=== PATIENT | female | born 1965 | race Caucasian/White ===

== ENCOUNTER → 2019-02-25 13:45 | Outpatient (BNVA) | payer MEDICAID, SELFPAY | PROVIDERS: Family Provider Nurse Practitioner Family; PCP Internal Medicine; Visit Provider Orthopaedic Surgery | DX: M25.832 Other specified joint disorders, left wrist (principal) | CPT/HCPCS: 73110 ==

== ENCOUNTER 2019-03-25 15:46 | Outpatient (CLI) | payer MEDICAID, SELFPAY ==
--- NOTE | 2019-03-25 15:15 | MR_ITS ---
WS: [id number] MRI LUMBAR SPINE NONCONTRAST TECHNIQUE: Sagittal T1, T2 and STIR imaging. Axial T1 and T2 imaging. CLINICAL INFORMATION: Low back pain COMPARISON: None. FINDINGS: Mild lumbar curve. No acute compression. No high-grade central canal stenosis. L1-L2: Normal. L2-L3: No significant disc bulging. Mild facet arthropathy. Slight narrowing of the right subarticula r recess. Spinal canal and foramen are patent. L3-L4: Minimal annular bulging. Mild facet arthropathy. Spinal canal and foramen are patent. L4-L5: Minimal anterolisthesis. Mild annular bulging. Moderate facet arthropathy. Slight effacement o f ventral thecal sac. Small right foraminal protrusion with mild right and no significant left forami nal narrowing. L5-S1: No significant disc bulging. Moderate facet arthropathy. Spinal canal and foramen are patent. Small amount of edema in the adjacent L4 and L5 pedicles consistent with stress reaction and/or degen erative change. Tarlov cysts in the sacrum. Prior postoperative changes anterior cervical fusion C5-6. Small left renal cyst. Normal caliber abdo long aorta. MR/MR lumbar spine wo con* [id number] IMPRESSION: 1. Mild lumbar curve. No acute compression. 2. Slight anterolisthesis L4 on L5. Small right proximal foraminal protrusion with mild right L4-5 foraminal narrowing. Slight annular bulging L2-3 with slig ht narrowing of the right subarticular recess. 3. Moderate facet arthropathy L4-L5 and L5-S1 with a small amount of edema in the adjacent pedicles consistent with stress reaction and/or degenerative henry e. 4. Prior anterior cervical fusion C5-6.
== END 2019-03-25 15:47 | disposition home or self-care (01) ==
PROVIDERS: Family Provider Nurse Practitioner Family; PCP Licensed Practical Nurse; Visit Provider Licensed Practical Nurse
DX: Z98.1 Arthrodesis status (principal); M47.817 Spondylosis without myelopathy or radiculopathy, lumbosacral region
CPT/HCPCS: 72148

== ENCOUNTER → 2019-04-02 09:26 | Outpatient (BNVA) | payer MEDICAID, SELFPAY | PROVIDERS: Family Provider Nurse Practitioner Family; PCP Licensed Practical Nurse; Referring Provider Licensed Practical Nurse; Visit Provider Psychiatry & Neurology Neurology | DX: M54.5 Low back pain (principal); M79.605 Pain in left leg; M79.604 Pain in right leg; Z87.891 Personal history of nicotine dependence | CPT/HCPCS: 95885; 95909 ==

== ENCOUNTER → 2019-04-22 10:08 | Outpatient (BNVA) | payer MEDICAID, SELFPAY | PROVIDERS: Family Provider Nurse Practitioner Family; PCP Family Medicine; Visit Provider Psychiatry & Neurology Neurology | DX: M51.36 Other intervertebral disc degeneration, lumbar region (principal); M47.816 Spondylosis without myelopathy or radiculopathy, lumbar region; M50.00 Cervical disc disorder with myelopathy, unspecified cervical region; M62.830 Muscle spasm of back; F17.210 Nicotine dependence, cigarettes, uncomplicated; Z79.891 Long term (current) use of opiate analgesic | CPT/HCPCS: 99205; 99999 ==

== ENCOUNTER 2020-08-05 11:43 | Outpatient (CLI) | payer MEDICAID, SELFPAY ==
--- NOTE | 2020-08-05 11:46 | MM_ITS ---
WS: [id number] SCREENING DIGITAL MAMMOGRAM WITH CAD HISTORY: SCREENING COMPARISON: 12/13/2018, 10/24/2010 and 12/09/2013 Bilateral CC and MLO views submitted. Computer aided detection analyzed. Breast composition: There are scattered areas of fibroglandular density. Lobulated asymmetry in the c entral RIGHT breast seen best on the CC projection. This is just lateral to the nipple line and proba yessica below the nipple line on the lateral projection. This area may have been present on prior studies but better seen today and needs further evaluation. MM/[place] [id number] IMPRESSION: BI-RADS: 0-Incomplete: Need additional imaging evaluation FOLLOW UP: Need Additional Imaging RIGHT breast: Spot compression views (CC and MLO). True ML. Ultrasound to follo w if abnormality persists.
== END 2020-08-05 11:44 | disposition home or self-care (01) ==
LOC: RADSHAW 11:45
PROVIDERS: PCP Family Medicine; Visit Provider Family Medicine
DX: Z12.31 Encounter for screening mammogram for malignant neoplasm of breast (principal)
CPT/HCPCS: 77067

== ENCOUNTER 2020-09-21 07:02 | Outpatient (CLI) | payer MEDICAID, SELFPAY ==
--- NOTE | 2020-09-21 07:18 | USCV_ITS ---
Marla Eugene Age: 55 Gender: F : 1965 Exam Date: 09/21/2020 07:15 Ordering Phys: Bernardo Olguin MD Technologist: Lexus Rendon Exam Location: [facility] [place] Indication: CHRONIC LOWER BACK PAIN Risk Factors: Previous Vascular Surgery: RIGHT LEFT BP: 152.0 / BP: 145.0/ 0 0 Waveform Velocity (cm/s) Velocity (cm/s) Waveform Triphasic 116.5 Iliac Prox 145.3 Triphasic Triphasic 128.5 Iliac Mid 140.5 Triphasic Triphasic 130.1 Iliac Distal 127.5 Triphasic Triphasic 112.3 METAL CANS SUPERVISOR 123.1 Triphasic Triphasic 120.9 SFA Prox 111.7 Triphasic Triphasic 128.8 SFA Mid 123.6 Triphasic Triphasic SFA Dist Triphasic 99.9 81.6 Triphasic 68.4 POP 66.8 Triphasic Triphasic 149.1 ADMISSIONS COUNSELOR 130.1 Triphasic Triphasic 79.4 DPA 57.5 Triphasic 1.2 PITA 1.1 FINDINGS TOE PITA RT-0.92 LT- 0.85 Normal resting ABIs bilaterally Normal resting TBIs bilaterally Normal arterial Doppler waveforms CONCLUSIONS No significant arterial obstruction, based on the above findings Dr Hallie Ojeda MD [facility] (Electronically Signed) Final Date: 22 September 2020 10:05 S
== END 2020-09-21 07:03 | disposition home or self-care (01) ==
PROVIDERS: PCP Family Medicine; Visit Provider Family Medicine
DX: M54.5 Low back pain (principal)
CPT/HCPCS: 93922; 93925

== ENCOUNTER 2020-10-22 11:47 | Outpatient (CLI) | payer MEDICAID, SELFPAY ==
--- NOTE | 2020-10-22 11:54 | US_ITS ---
WS: [id number] ADDITIONAL VIEWS RIGHT BREAST RIGHT breast ultrasound, limited HISTORY: ABNORMAL SCREENING COMPARISON: 08/05/2020 and 12/13/2018 Compression views right CC and MLO projection. True ML also submitted. Mild increased density of the lobulated mass measuring 10 mm central to the nipple. This is at a midd le depth. Present on prior studies but has increased in size. There is an additional asymmetry which appears less suspicious in the inferior RIGHT breast. RIGHT breast ultrasound, limited. There is a predominantly cystic mass at 8:00, 1 cm from the nipple measures 9 x 4 x 3 mm. Margins are irregular and lobulated. This does correspond in shape and size to the mammographic abnormality. This may represent complex cyst. US/US breast RT limited* [id number] IMPRESSION: BI-RADS: 4-Suspicious Finding-Biopsy Should Be Considered FOLLOW-UP: Biopsy Recommended Ultrasound-guided biopsy recommended of the irregular mass at 8:00 within the R IGHT breast. This may be a complex cyst and may aspirate. Due to the change in size and shape compared to prior examinations recommend additional evaluation b y biopsy.
== END 2020-10-22 11:48 | disposition home or self-care (01) ==
PROVIDERS: PCP Family Medicine; Visit Provider Family Medicine
DX: R92.8 Other abnormal and inconclusive findings on diagnostic imaging of breast (principal); N63.13 Unspecified lump in the right breast, lower outer quadrant
CPT/HCPCS: 76642; 77065

== ENCOUNTER → 2021-03-21 14:25 | Outpatient (BNVA) | payer MEDICAID, SELFPAY | PROVIDERS: PCP Family Medicine; Visit Provider Surgery | DX: Z01.812 Encounter for preprocedural laboratory examination (principal) | CPT/HCPCS: 87635 ==

== ENCOUNTER 2021-05-05 09:09 | Day surgery (SDC) | payer MEDICAID, SELFPAY ==
[2021-05-04 17:08] VITALS: BMI 29.0
--- NOTE | 2021-05-05 07:57 | US_ITS ---
WS: [id number] ULTRASOUND RIGHT BREAST HISTORY: r breast complex cyst COMPARISON: 10/22/2020 TECHNIQUE: 2-D and Doppler. Patient presents for wire localization of a complex cyst in the RIGHT breast at 8:00. This cyst was i dentified on 10/22/2020. Since that examination this cyst has resolved. There is no cyst identified to day. This was discussed with Dr. Monk. US/US breast RT limited* [id number] IMPRESSION: BI-RADS: 2-Benign FOLLOW-UP: See Report Patient to return to annual screening mammography. Patient's screening examinat ion is due in July 2021.
--- NOTE | 2021-05-05 09:26 | ANES.PREANE2 ---
Pre-Anesthetic Assessment Height/Weight: Height 1.68 m Weight 81.647 kg Preop Diagnosis: Gangion left wrist Operation Date: 05/05/21 10:30 Proposed Procedures p Breast Biopsy Needle Localization(Right) - Elian Monk MD s Breast Biopsy(Right) - Elian Monk MD Familial anesthetic complications: none Was Beta Rl taken within 24 hours: N/A Was Clonidine taken within 24 hours: N/A Last intake: > 8 hrs Social No alcohol and No tobacco Exam alert, oriented x 3, clear to auscultation bilaterally and regular rate & rhythm Airway Mallampati: Class III Dentition: other (no teeth) Pulmonary Asthma CV/HEM Hypertension Anesthetic Plan ASA status: 3 Anesthesia: General Risk of > 500 ml blood loss (7ml/kg in children): No Medications/Allergies Home Medications Medication Instructions Recorded Confirmed Last Taken Type albuterol sulfate 90 mcg/actuation 2 puff INHALATION Q6H PRN 03/17/19 05/04/21 Unknown History aerosol inhaler (Ventolin HFA) irbesartan 75 mg tablet (Avapro) 75 mg PO DAILY 04/22/19 05/04/21 Unknown History tizanidine 4 mg tablet 4 mg PO BID PRN #60 tab MDD 2 04/22/19 05/04/21 Unknown Rx cholecalciferol (vitamin D3) 125 125 mcg PO DAILY 04/06/21 05/04/21 Unknown History mcg (5,000 unit) tablet (Vitamin D3) hydroxyzine HCl 50 mg tablet 50 mg PO BID PRN 04/06/21 05/04/21 Unknown History Allergies Allergy/AdvReac Type Severity Reaction Status Date / Time sertraline [From Zoloft] Allergy hallucinatory Verified 05/04/21 17:06 symptoms Sulfa (Sulfonamide Allergy rash Verified 05/04/21 17:06 Antibiotics) COUNTS INCLUDE 234 BEDS AT THE [facility] Anesthesia Medical History (Updated 09/01/20 @ 08:21 by Bernardo Thao MD) Allergic rhinitis due to allergen Anxiety Back pain Degenerative lumbar disc Facet arthropathy, lumbar Ganglion, left wrist Hypertelorism Intervertebral disc disorder with radiculopathy of lumbosacral region long term care phlebotomist (current) use of opiate analgesic Pain management contract signed Surgical History (Updated 09/01/20 @ 08:21 by Bernardo Thao MD) History of ankle surgery (~2001) History of cervical spinal surgery Dr. Shaun Lomax Neurosurgery Vital C5-C6 ACDFF History of hysterectomy (~2009) Had bladder repair at same time History of tubal ligation (~1994) Hx of neck surgery Family History Grandfather Colon cancer Mother Colon cancer Social History (Updated 04/22/19 @ 11:22 by Shabana Sol RN) Smoking and tobacco status: current every day smoker cigarettes Packs smoked per day: 0.33 Alcohol intake: current Alcohol intake frequency: few times a week Alcohol type: beer Lives independently: Yes Housing: House Marital status: Legally service: No Current occupational status: unemployed and disabled History of recent travel: No Current gender identity: Female Data Anesthesia Cardiac Studies: No Data to Display
--- NOTE | 2021-05-05 10:21 | W.PM.OPSUD ---
Surgery/Procedure H&P Update DATE OF PROCEDURE: May 05, 2021 DATE H&P PERFORMED: 04/26/21 H&P UPDATE INFORMATION: Changes to prior documentation as noted here CHANGES TO PREVIOUS DOCUMENTATION: Patient went her for her preoperative needle localization this morning and the radiologist could not find any abnormality where the previous lesion was. Consequently, we are going to cancel her case and I will see her as needed in the future. PREOP DIAGNOSIS: Right breast cystic lesion by ultrasound. PLANNED PROCEDURE: Operation Date: 05/05/21 10:30 Proposed Procedures p Breast Biopsy Needle Localization(Right) - Elian Monk MD s Breast Biopsy(Right) - Elian Monk MD
--- NOTE | 2021-05-05 10:28 | SUR.PREOP ---
surgery cancelled. nothing found to localize in ultrasound. patient left ambulatory
== END 2021-05-05 11:24 | disposition home or self-care (01) ==
LOC: OR 09:13
PROVIDERS: PCP Family Medicine; Visit Provider Surgery
DX: N60.01 Solitary cyst of right breast (principal); M19.90 Unspecified osteoarthritis, unspecified site; J43.9 Emphysema, unspecified; M79.7 Fibromyalgia; K21.9 Gastro-esophageal reflux disease without esophagitis; I10 Essential (primary) hypertension; M81.0 Age-related osteoporosis without current pathological fracture; F17.210 Nicotine dependence, cigarettes, uncomplicated
CPT/HCPCS: 76642

== ENCOUNTER 2022-10-20 23:55 | Emergency (ER) | payer MEDICAID, SELFPAY ==
[2022-10-20 23:59] VITALS: BP 154/82; PULSE 75; RESP 18; TEMP 36.7; O2SAT 94; BMI 26.6
--- NOTE | 2022-10-21 00:39 | XRR_ITS ---
PROCEDURE INFORMATION: Exam: XR Abdomen Exam date and time: 10/21/2022 12:45 AM Age: 57 years old Clinical indication: Bloating; Abdominal pain; Localized; Right; Prior surgery; Surgery date: 6+ months; Surgery type: Hysterectomy; Patient HX: C/O RT sided abd pain with distention; Additional info: Abd distention TECHNIQUE: Imaging protocol: Radiologic exam of the abdomen. Views: Frontal supine view of the abdomen. 1 View. COMPARISON: No relevant prior studies available. FINDINGS: Gastrointestinal tract: Zeoefhxu-ld-cdlfi stool burden. No bowel dilation. Bones/joints: No acute osseous abnormality. XR/XR KUB [id number] IMPRESSION: No evidence of bowel obstruction. Cylauhqh-sz-iopbj stool burden.
--- NOTE | 2022-10-21 00:50 | W.ED.ABDPA2 ---
HPI - Abdominal Pain General: Chief Complaint: Abdominal Pain Stated Complaint: ABD Pain Time Seen by Provider: 10/21/22 00:39 History of Present Illness: 57-year-old female comes in today for concerns of a palpable mass to her right flank area. Patient also reports some increased abdominal distention. Patient appears nontoxic. Patient does admit to cigarette smoking, occasional alcohol use, and occasional smoking of methamphetamines. Patient denies hepatitis. Patient denies chronic medical problems. 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 Shaun Lomax Neurosurgery Vital C5-C6 ACDFF History of hysterectomy (~2009) Had bladder repair at same time History of tubal ligation (~1994) Hx of neck surgery Family History Grandfather Colon cancer Mother Colon cancer Social History (Updated 04/22/19 @ 11:22 by Shabana Sol RN) Smoking and tobacco status: current every day smoker cigarettes Packs smoked per day: 0.33 Alcohol intake: current Alcohol intake frequency: few times a week Alcohol type: beer Substance/Drug Use: current Lives independently: Yes Housing: House Marital status: Legally service: No Current occupational status: unemployed and disabled Current gender identity: Female Physical Exam Const: COMMON NORMALS: alert HENMT: COMMON NORMALS: normocephalic HEAD & SCALP: normocephalic Neck/C-Spine: COMMON NORMALS: full ROM Resp: COMMON NORMALS: normal respiratory effort and clear to auscultation bilaterally AUSCULTATION: clear to auscultation bilaterally Cardio: COMMON NORMALS: regular rate RATE: regular rate GI: COMMON NORMALS: Soft to palpation and non-tender PALPATION: Yes Soft to palpation Extremity: COMMON NORMALS: normal to inspection Neuro: SENSORIUM/ORIENTATION: Yes alert Skin: NARRATIVE SKIN EXAM: Mobile palpable mass approximately 3 cm circular to the right flank area, no fluid feels to be adipoma Course Vital Signs: Vital signs: Vital Signs Temperature 98.0 F 10/20/22 23:59 Pulse Rate 70 10/21/22 01:45 Respiratory Rate 16 10/21/22 01:45 Blood Pressure 135/78 10/21/22 01:45 Pulse Oximetry 96 10/21/22 01:45 Oxygen Delivery Me thod Room Air 10/21/22 01:30 MDM - Abdominal Pain Medical Decision Making Patient comes in today for abdominal distention and a palpable mass to the right flank. On exam abdomen soft and nontender. Bowel sounds are present. Patient does have some capillary hemangiomas to the abdomen. Palpation of a 3 to 4 cm circular mass to the right flank. The mass is mobile without any significant fluid or fluctuance. Vital signs are normal except for some mild elevation in blood pressure. Differential diagnosis includes liver disease, lipoma, sarcoma, bowel obstruction, anxiety about health. Patient has a lipoma to the tissue in the right flank area that is of concern for her. CBC, CMP were unremarkable. Urinalysis was normal. Reassured that the abnormality is benign recommended follow-up with primary care as needed. Lab Data 10/21/22 00:54 10/21/22 00:54 Labs/Radiology: Radiology Impressions KUB X-Ray 10/21/22 00:39 IMPRESSION: No evidence of bowel obstruction. Fbexnwxi-kc-mrvop stool burden. Laboratory Results WBC 8.29 10^3/uL (3.29-11.43) 10/21/22 00:54 RBC 4.58 10^6/uL (3.85-5.65) 10/21/22 00:54 Hgb 14.00 g/dL (11.27-16.99) 10/21/22 00:54 Hct 42.3 % (36-47) 10/21/22 00:54 MCV 92.4 fl (85-98) 10/21/22 00:54 MCH 30.6 pg (27-33) 10/21/22 00:54 MCHC 33.1 g/dL (30-55) 10/21/22 00:54 RDW 12.6 % (12.1-15.1) 10/21/22 00:54 Plt Count 328 10^3/cmm (157-399) 10/21/22 00:54 MPV 8.7 fL (7.4-10.4) 10/21/22 00:54 Neut % (Auto) 53.9 % 10/21/22 00:54 Lymph % (Auto) 38.2 % 10/21/22 00:54 [place] % (Auto) 6.0 % 10/21/22 00:54 Eos % (Auto) 1.0 % 10/21/22 00:54 Baso % (Auto) 0.7 % 10/21/22 00:54 Neut # (Auto) 4.46 10^3/uL (1.8-7.7) 10/21/22 00:54 Lymph # (Auto) 3.2 10^3/uL (0.8-4.8) 10/21/22 00:54 [place] # (Auto) 0.5 10^3/uL (0.2-0.9) 10/21/22 00:54 Eos # (Auto) 0.1 10^3/uL (0.0-0.8) 10/21/22 00:54 Baso # (Auto) 0.1 10^3/uL (0.0-0.1) 10/21/22 00:54 Nucleated RBC % (auto) 0 % 10/21/22 00:54 Nucleated RBCs # 0.0 /100WBC 10/21/22 00:54 Sodium 141 mmol/L (136-145) 10/21/22 00:54 Potassium 3.8 mmol/L (3.5-5.1) 10/21/22 00:54 Chloride 103 mmol/L (98-107) 10/21/22 00:54 Carbon Dioxide 29 mmol/L (22-29) 10/21/22 00:54 Anion Gap 12.8 (5-19) 10/21/22 00:54 BUN 18 mg/dL (6-20) 10/21/22 00:54 Creatinine 0.8 mg/dL (0.5-0.9) 10/21/22 00:54 GFR Calculation 73.9 mL/min (90-130) L 10/21/22 00:54 Glucose 94 mg/dL (65-115) 10/21/22 00:54 Calculated Osmolality 294 mOsm/kg (285-295) 10/21/22 00:54 Calcium 9.2 mg/dL (8.5-10.5) 10/21/22 00:54 Total Bilirubin 0.4 mg/dL (0.15-1.2) 10/21/22 00:54 AST 16 U/L (0-32) 10/21/22 00:54 ALT 18 U/L (0-33) 10/21/22 00:54 Alkaline Phosphatase 86 U/L (35-105) 10/21/22 00:54 Total Protein 7.6 g/dL (6.6-8.7) 10/21/22 00:54 Albumin 4.8 g/dL (3.5-5.2) 10/21/22 00:54 Globulin 2.8 g/dL (1.3-4.6) 10/21/22 00:54 Urine Color Yellow (Yellow) 10/21/22 00:21 Urine Appearance Clear (CLEAR) 10/21/22 00:21 Urine pH 5 (5-7) 10/21/22 00:21 Ur Specific [place] 1.020 (1.005-1.030) 10/21/22 00:21 Urine Protein Neg (Negative) 10/21/22 00:21 Urine Glucose (UA) Norm (Normal) 10/21/22 00:21 Urine Ketones Negative (Negative) 10/21/22 00:21 Urine Blood 2+ (Negative) H 10/21/22 00:21 Urine Nitrate Negative (Negative) 10/21/22 00:21 Urine Bilirubin Neg (Negative) 10/21/22 00:21 Urine Urobilinogen Neg mg/dL (Negative) 10/21/22 00:21 Ur Leukocyte Esterase Negative (Negative) 10/21/22 00:21 Urine RBC 5-10 /hpf (0-2) H 10/21/22 00:21 Urine WBC 0-4 /hpf (0-5) H 10/21/22 00:21 Ur Squamous Epith Cells 0-4 /hpf (0-5) H 10/21/22 00:21 Amorphous Sediment 1+ /hpf 10/21/22 00:21 Urine Bacteria None /hpf (NONE) 10/21/22 00:21 Urine Mucus 2+ /hpf 10/21/22 00:21 Discharge Plan Discharge Patient Disposition: Home Clinical Impression: Lipoma Qualifiers: Lipoma location: trunk Qualified Code(s): D17.1 - Benign lipomatous neoplasm of skin and subcutaneous tissue of trunk Constipation Qualifiers: Constipation type: unspecified constipation type Qualified Code(s): K59.00 - Constipation, unspecified Condition: Stable Prescriptions: New Senna with Docusate Sodium 8.6-50 mg tablet 2 tab-cap PO BID PRN (Reason: constipation) Qty: 30 0RF No Action irbesartan [Avapro] 75 mg tablet 75 mg PO DAILY tizanidine 4 mg tablet 4 mg PO BID MDD 2 PRN (Reason: muscle spasticity) Qty: 60 0RF albuterol sulfate [Ventolin HFA] 90 mcg/actuation HFA aerosol inhaler 2 puff INHALATION Q6H PRN (Reason: Shortness Of Breath) hydroxyzine HCl 50 mg Tablet 50 mg PO BID PRN (Reason: Anxiety) cholecalciferol (vitamin D3) [Vitamin D3] 125 mcg (5,000 unit) Tablet 125 mcg PO DAILY Discharge Orders: Discharge ED (Routine); Ordered 10/21/22 Ordered By: Korey Potts Referrals: Bernardo Olguin MD [Primary Care Provider] - Discharge Diet: Usual diet Discharge Activity: Increase activity as tolerated Patient Instructions: Constipation (ED) Activity Restrictions/Additional Instructions: Drink plenty water and fluids. Healthy diet and activity. Follow-up with primary care for further instructions. Use a stool softener twice daily to help with bowel movement. You can use a mild laxative such as senna 1 or 2 tablets twice a day as needed for further constipation relief. The most important part low is a healthy diet with lots of fresh fruits and vegetables. Return to ED for new concerns. Follow-up with primary care for further instructions. Coding Level of Care Code ED Nutritional Yeast Supervisor for Christina Bryant
[2022-10-21 00:56] LABS: Add Urine Microscopic? YES; Bilirubin Urine Neg (Negative); Blood Urine 2+ (Negative); Glucose Urine UA Norm (Normal); Ketones Urine Negative (Negative); Leukocyte Esterase Urine Negative (Negative); Nitrate Urine Negative (Negative); Protein Urine Neg (Negative); Urine Appearance Clear (CLEAR); Urine Color Yellow (Yellow); Urobilinogen Urine Neg (Negative); pH Urine 5 (5-7)
[2022-10-21 00:57] LABS: Add Urine Culture? No; Amorphous Sediment Urine 1+ /hpf; Mucus Urine 2+ /hpf; Squamous Epithelial Cell Urine 0-4 /hpf (0-5); WBC Urine 0-4 /hpf (0-5)
[2022-10-21 01:00] LABS: Basophils # 0.1 10^3/uL (0.0-0.1); Basophils % 0.7 %; Eosinophils # 0.1 10^3/uL (0.0-0.8); Hematocrit 42.3 % (36-47); Lymphocytes # 3.2 10^3/uL (0.8-4.8); Lymphocytes % 38.2 %; Mean Corpuscular HGB Conc 33.1 g/dL (30-55); Mean Corpuscular Hemoglobin 30.6 pg (27-33); Mean Corpuscular Volume 92.4 fl (85-98); Mean Platelet Volume 8.7 fL (7.4-10.4); Monocytes # 0.5 10^3/uL (0.2-0.9); Neutrophils # 4.46 10^3/uL (1.8-7.7); Neutrophils % 53.9 %; Nucleated Red Blood Cells % 0 %; Platelet Count 328 10^3/cmm (157-399); Red Blood Count 4.58 10^6/uL (3.85-5.65); Red Cell Distribution Width 12.6 % (12.1-15.1); White Blood Count 8.29 10^3/uL (3.29-11.43)
[2022-10-21 01:25] LABS: Alanine Aminotransferase 18 U/L (0-33); Albumin Level 4.8 g/dL (3.5-5.2); Alkaline Phosphatase 86 U/L (35-105); Anion Gap 12.8 (5-19); Aspartate Amino Transferase 16 U/L (0-32); Blood Urea Nitrogen 18 mg/dL (6-20); Calcium 9.2 mg/dL (8.5-10.5); Carbon Dioxide 29 mmol/L (22-29); Chloride 103 mmol/L (98-107); Globulin 2.8 g/dL (1.3-4.6); Glomerular Filtration Rate 73.9 mL/min (90-130); Glucose 94 mg/dL (65-115); Osmolality Calculated 294 mOsm/kg (285-295); Potassium 3.8 mmol/L (3.5-5.1); Sodium 141 mmol/L (136-145); Total Bilirubin 0.4 mg/dL (0.15-1.2); Total Protein 7.6 g/dL (6.6-8.7)
[2022-10-21 01:30] VITALS: BP 144/66; PULSE 63; RESP 18; O2SAT 96
[2022-10-21 01:45] VITALS: BP 135/78; PULSE 70; RESP 16; O2SAT 96
== END 2022-10-21 01:50 | disposition home or self-care (01) ==
PROVIDERS: Emergency Provider Nurse Practitioner Family; PCP Family Medicine
DX: D17.1 Benign lipomatous neoplasm of skin and subcutaneous tissue of trunk (principal); K59.00 Constipation, unspecified; F17.210 Nicotine dependence, cigarettes, uncomplicated
CPT/HCPCS: 36415; 74018; 80053; 81001; 85025; 99284

== ENCOUNTER → 2023-06-27 13:59 | Outpatient (BNVA) | payer MEDICAID, SELFPAY | PROVIDERS: PCP Family Medicine; Visit Provider Registered Nurse Neonatal Intensive Care | DX: M25.572 Pain in left ankle and joints of left foot (principal) | CPT/HCPCS: 73610 ==

== ENCOUNTER 2023-12-23 13:12 | Emergency (ER) | payer OTHER, MEDICAID, SELFPAY ==
[2023-12-23 13:28] VITALS: BP 152/83; PULSE 81; RESP 20; TEMP 37.2; O2SAT 95; BMI 27.4
--- NOTE | 2023-12-23 13:48 | ED_ITS ---
HPI - General Adult 2 General: Chief complaint: General Medical Stated complaint: left shoulder squeeze pain, face/tounge is numb Time Seen by Provider: 12/23/23 13:35 Source: patient Mode of arrival: ambulatory Limitations: no limitations History of Present Illness: This patient presents with symptoms that have been intermittent over the past several days which she describes as her face feeling funny with tongue and face being. She states is more circumoral and not located on 1 side or the other. She states she has a history of peripheral neuropathy which she was told was due to sequelae of [place] spotted fever. She denies any focal weakness. She denies any headache fever or other constitutional symptoms. She did relate to the nurse at triage that she has been using meth amphetamine recently and she is also been taking part a THC gummy bears. She does admit to also smoking tobacco as well as an occasional alcohol drink consumption. She denies any seizure disorders. She takes no prescribed medications currently. She denies any known exposure to infectious disease. She states she has been eating and drinking normally. Associated symptoms: Deny chest pain, dyspnea, headache(s), nausea, rash, palpitations or vomiting Related Data Home Medications Medication Instructions Recorded Confirmed No Known Home Medications 06/27/23 12/23/23 Allergies Allergy/AdvReac Type Severity Reaction Status Date / Time sertraline [From Zoloft] Allergy hallucinatory Verified 12/23/23 13:27 symptoms Sulfa (Sulfonamide Allergy rash Verified 12/23/23 13:27 Antibiotics) Review of Systems 2 Const: Denies: fever(s), chills or body aches Eyes: Denies: change in vision ENMT: Denies: throat pain, odynophagia, nasal discharge, nasal congestion or nasal obstruction Card: Denies: chest pain, palpitations or irregular heart rhythm Resp: Denies: dyspnea, productive cough or non-productive cough GI: Denies: abdominal pain, nausea or vomiting : Denies: flank pain, difficulty voiding, dysuria or urinary frequency Musc: Denies: neck pain, back pain, extremity pain or extremity swelling Skin/Breast: Denies: rash, pruritus or erythema Neuro: Reports: sensory changes; Denies: headache(s), numbness in extremities, weakness in extremities, lack of coordination, Slurred speech present or seizure-like activity Psych: Reports: anxiety; Denies: depression Endo: Denies: polyuria or polydipsia Robinson/Lymph: Denies: easy bruising or easy bleeding PFSH ED 2 PFSH: Medical History Allergic rhinitis due to allergen Anxiety Hypertelorism assisted (current) use of opiate analgesic Pain management contract signed Facet arthropathy, lumbar Degenerative lumbar disc Back pain Intervertebral disc disorder with radiculopathy of lumbosacral region Ganglion, left wrist Surgical History Hx of neck surgery History of tubal ligation (~1994) History of hysterectomy (~2009) Had bladder repair at same time History of ankle surgery (~2001) History of cervical spinal surgery Dr. Shaun Lomax Neurosurgery Vital C5-C6 ACDFF Family History Grandfather Colon cancer Mother Colon cancer Social History Smoking and tobacco/nicotine status: current every day tobacco/nicotine user cigarettes Packs smoked per day: 0.33 Alcohol intake: current Alcohol intake frequency: few times a week Alcohol type: beer Substance/Drug Use: current Lives independently: Yes Housing: House Marital status: Legally service: No Current occupational status: unemployed and disabled Current gender identity: Female Physical Exam 2 Narrative: EXAM NARRATIVE: Patient is alert in no acute distress. She makes good eye contact. She speaks in a goal-directed and fluent voice at the time of the interview. Const: COMMON NORMALS: no acute distress, average body habitus, patient oriented x3 and alert GENERAL APPEARANCE: cooperative and comfortable HENMT: COMMON NORMALS: normocephalic, Normal nasal mucous membranes and turbinates present, moist oral mucous membranes and oropharynx normal HEAD & SCALP: normocephalic FACE & SINUS: normal facial exam and face symmetric N OSE: Normal nasal mucous membranes and turbinates present TEETH & GINGIVA: Y es edentulous THROAT: uvula midline OTHER: No intraoral abnormalities noted. Eye: COMMON NORMALS: Equal, round and reactive pupils present, EOMs intact bilaterally and conjunctivae normal CONJUNCTIVA: Yes conjunctivae normal P UPIL: Yes Equal, round and reactive pupils present Neck/C-Spine: COMMON NORMALS: full ROM, no lymphadenopathy, Thyroid normal and No carotid bruits THYROID: Thyroid normal Resp: COMMON NORMALS: normal respiratory effort, No retractions, No use of accessory muscles and clear to auscultation bilaterally AUSCULTATION: clear to auscultation bilaterally Cardio: COMMON NORMALS: regular rate, regular rhythm, No murmurs present (Cardio) and Peripheral pulses 2+ throughout RATE: regular rate RHYTHM: r egular rhythm PERIPHERAL PULSES: Peripheral pulses 2+ throughout GI: COMMON NORMALS: Normal to inspection, nondistended, normoactive bowel sounds present, Soft to palpation and non-tender PALPATION: Yes Soft to palpation : COMMON NORMALS: Yes no CVA tenderness BLADDER/KIDNEY EXAM: Yes no CVA tenderness Back/Pelvis: COMMON NORMALS: no CVA tenderness, thoracic and lumbar spine normal to inspection, no thoracic nor lumbar tenderness and thoraco-lumbar ROM normal Extremity: COMMON NORMALS: normal to inspection, full ROM, capillary refill normal, no joint enlargement, no clubbing, cyanosis or edema and no calf tenderness Neuro: COMMON NORMALS: patient oriented x3, moves all extremities, no focal motor deficits and no sensory deficits noted SENSORIUM/ORIENTATION: Yes alert CRANIAL NERVES: Yes CN normal except as noted COORDINATION/BALANCE: f [id number] test normal and njas-[id number] test normal SPEECH: speech normal GAIT: Yes Normal gait present COORDINATION: [id number] test normal and lagc-ax-kgpt test normal Psych: COMMON NORMALS: mental status grossly normal, Normal thought process present, speech normal, denies hallucinations, denies homicidal ideation and denies suicidal ideation SPEECH: Yes normal speech THOUGHT PROCESS: Normal thought process present Skin: COMMON NORMALS: no rashes or lesions noted, no wounds and turgor normal GENERAL SKIN EXAM: no rashes or lesions noted and turgor normal Course 2 Reevaluation(s): Reevaluation #1: Repeat evaluation of the patient reveals no evidence of any ongoing new or focal findings on repeat examination. She continues to not display any focal neurologic symptoms she is able to enunciate and speak in a clear voice. She is a dentulous so that also does give her a little bit of a lisp but otherwise very understandable. No other focal findings. We discussed all her findings and their reassuring nature today and there as well as her limitations. I also reviewed the fact that she has been using the THC Gummies and relayed that they sometimes can have some unusual effects on end-user to include various numbness or other odd feelings. At this point I think she is stable and I have advised her to avoid the THC gummy bears as well as her methamphetamine of course. She acknowledged our discussion and voiced understanding. Time: 15:40 Vital Signs: Vital signs: Vital Signs Temperature 98.9 F 12/23/23 13:28 Pulse Rate 81 12/23/23 13:28 Respiratory Rate 20 H 12/23/23 13:28 Blood Pressure 152/83 12/23/23 13:28 Pulse Oximetry 95 12/23/23 13:28 MDM - General Adult Medical Decision Making Patient presented with symptoms as noted in the HPI. Her clinical examination is reassuring without any evidence of focal findings or other findings on her exam to suggest a neurologic etiology to her presentation. Screening laboratories were obtained and additional information was gleaned from triage note as well as the patient personally regarding her use of THC in the gummy form as well as her methamphetamine use. She also endorsed some anxiety symptoms on her clinical interview. Laboratories are reassuring repeat clinical examination is reassuring as well. Do not feel that this represents an ongoing emergency medical condition at this time. Advised discontinuation of the exogenous substance use to see if her symptoms do not tai but also discussed return precautions Lab Data I reviewed the patient's lab results. 12/23/23 14:04 12/23/23 14:04 Laboratory Results WBC 8.47 10^3/uL (3.29-11.43) 12/23/23 14:04 RBC 4.26 10^6/uL (3.85-5.65) 12/23/23 14:04 Hgb 12.80 g/dL (11.27-16.99) 12/23/23 14:04 Hct 39.4 % (36-47) 12/23/23 14:04 MCV 92.5 fl (85-98) 12/23/23 14:04 MCH 30.0 pg (27-33) 12/23/23 14:04 MCHC 32.5 g/dL (30-55) 12/23/23 14:04 RDW 12.1 % (12.1-15.1) 12/23/23 14:04 Plt Count 315 10^3/cmm (157-399) 12/23/23 14:04 MPV 8.5 fL (7.4-10.4) 12/23/23 14:04 Neut % (Auto) 65.0 % 12/23/23 14:04 Lymph % (Auto) 27.0 % 12/23/23 14:04 [place] % (Auto) 6.0 % 12/23/23 14:04 Eos % (Auto) 1.2 % 12/23/23 14:04 Baso % (Auto) 0.7 % 12/23/23 14:04 Neut # (Auto) 5.50 10^3/uL (1.8-7.7) 12/23/23 14:04 Lymph # (Auto) 2.3 10^3/uL (0.8-4.8) 12/23/23 14:04 [place] # (Auto) 0.5 10^3/uL (0.2-0.9) 12/23/23 14:04 Eos # (Auto) 0.1 10^3/uL (0.0-0.8) 12/23/23 14:04 Baso # (Auto) 0.1 10^3/uL (0.0-0.1) 12/23/23 14:04 Nucleated RBC % (auto) 0 % 12/23/23 14:04 Nucleated RBCs # 0.0 /100WBC 12/23/23 14:04 Sodium 142 mmol/L (136-145) 12/23/23 14:04 Potassium 3.8 mmol/L (3.5-5.1) 12/23/23 14:04 Chloride 106 mmol/L (98-107) 12/23/23 14:04 Carbon Dioxide 25 mmol/L (22-29) 12/23/23 14:04 Anion Gap 14.8 (5-19) 12/23/23 14:04 BUN 12 mg/dL (6-20) 12/23/23 14:04 Creatinine 0.5 mg/dL (0.5-0.9) 12/23/23 14:04 GFR Calculation 126.7 mL/min (90-130) 12/23/23 14:04 Glucose 104 mg/dL (65-115) 12/23/23 14:04 Calculated Osmolality 294 mOsm/kg (285-295) 12/23/23 14:04 Calcium 8.3 mg/dL (8.5-10.5) L 12/23/23 14:04 Magnesium 2.0 mg/dL (1.7-2.3) 12/23/23 14:04 Total Bilirubin 0.2 mg/dL (0.15-1.2) 12/23/23 14:04 AST 11 U/L (0-32) 12/23/23 14:04 ALT 11 U/L (0-33) 12/23/23 14:04 Alkaline Phosphatase 75 U/L (35-105) 12/23/23 14:04 Total Protein 6.7 g/dL (6.6-8.7) 12/23/23 14:04 Albumin 3.7 g/dL (3.5-5.2) 12/23/23 14:04 Globulin 3.0 g/dL (1.3-4.6) 12/23/23 14:04 TSH 2.86 uIU/mL (0.27-4.20) 12/23/23 14:04 Urine Color Yellow (Yellow) 12/23/23 14:16 Urine Appearance Clear (CLEAR) 12/23/23 14:16 Urine pH 7.0 (5-7) 12/23/23 14:16 Ur Specific [place] 1.016 (1.005-1.030) 12/23/23 14:16 Urine Protein Negative (Negative) 12/23/23 14:16 Urine Glucose (UA) Negative (Normal) 12/23/23 14:16 Urine Ketones Negative (Negative) 12/23/23 14:16 Urine Blood Non-haemolysed trace (Negative) 12/23/23 14:16 Urine Nitrate Negative (Negative) 12/23/23 14:16 Urine Bilirubin Negative (Negative) 12/23/23 14:16 Urine Urobilinogen 0.2 mg/dL (Negative) 12/23/23 14:16 Ur Leukocyte Esterase Negative (Negative) 12/23/23 14:16 Urine RBC 3-5 /hpf (0-2) 12/23/23 14:16 Urine WBC 0-5 /hpf (0-5) 12/23/23 14:16 Ur Squamous Epith Cells 0-5 /hpf (0-5) 12/23/23 14:16 Amorphous Sediment Not Reportable 12/23/23 14:16 Urine Bacteria 2+ /hpf (NONE) H 12/23/23 14:16 Hyaline Casts 0-4 /lpf H 12/23/23 14:16 Urine Opiates Screen Negative ng/mL (Negative) 12/23/23 14:16 Ur Barbiturates Screen Negative ng/mL (Negative) 12/23/23 14:16 Ur Phencyclidine Scrn Negative ng/mL (Negative) 12/23/23 14:16 Ur Amphetamines Screen Positive ng/mL (Negative) H 12/23/23 14:16 U Benzodiazepines Scrn Negative ng/mL (Negative) 12/23/23 14:16 Urine Cocaine Screen Negative ng/mL (Negative) 12/23/23 14:16 U Marijuana (THC) Screen Positive ng/mL (Negative) H 12/23/23 14:16 No radiology studies performed this visit Discharge Plan Discharge Clinical Impression: Anxiety, Mild substance use disorder Condition: Stable Prescriptions: No Action No Known Home Medications Referrals: Bernardo Olguin MD [Primary Care Provider] - Discharge Diet: Usual diet Discharge Activity: Resume usual activity Activity Restrictions/Additional Instructions: As we reviewed during your Emergency Department stay your test while in the emergency department and clinical examination were reassuring and did not display any evidence of a emergency medical condition. We do advise you avoid nonprescribed substances such as your THC Gummies as methamphetamine as they may be contributing to your symptoms. If you develop worsening symptoms or new symptoms and and spite of discontinuing your substance use disorder you continue to have any concerning symptoms you are welcome to return to this or any other emergency department for reevaluation. Coding Level of Care Code ED [employer] for Christina Bryant
[2023-12-23 14:09] LABS: Basophils # 0.1 10^3/uL (0.0-0.1); Basophils % 0.7 %; Eosinophils # 0.1 10^3/uL (0.0-0.8); Eosinophils % 1.2 %; Hematocrit 39.4 % (36-47); Lymphocytes # 2.3 10^3/uL (0.8-4.8); Mean Corpuscular HGB Conc 32.5 g/dL (30-55); Mean Corpuscular Volume 92.5 fl (85-98); Mean Platelet Volume 8.5 fL (7.4-10.4); Monocytes # 0.5 10^3/uL (0.2-0.9); Nucleated Red Blood Cells % 0 %; Platelet Count 315 10^3/cmm (157-399); Red Blood Count 4.26 10^6/uL (3.85-5.65); Red Cell Distribution Width 12.1 % (12.1-15.1); White Blood Count 8.47 10^3/uL (3.29-11.43)
--- NOTE | 2023-12-23 14:16 | PC.PHAR ---
Patient hasn't seen a doctor so has no medications and she needs an inhaler she ran out .
[2023-12-23 14:36] LABS: Bilirubin Urine Negative (Negative); Blood Urine Non-haemolysed trace (Negative); Glucose Urine UA Negative (Normal); Ketones Urine Negative (Negative); Leukocyte Esterase Urine Negative (Negative); Nitrate Urine Negative (Negative); Protein Urine Negative (Negative); Specific Gravity, Urine 1.016 (1.005-1.030); Urine Appearance Clear (CLEAR); Urine Color Yellow (Yellow); Urobilinogen Urine 0.2 mg/dL (Negative)
[2023-12-23 14:41] LABS: Add Urine Microscopic? YES; Bacteria Urine 2+ /hpf; Hyaline Casts Urine 0-4 /lpf; Squamous Epithelial Cell Urine 0-5 /hpf (0-5); WBC Urine 0-5 /hpf (0-5)
[2023-12-23 14:44] LABS: Add Urine Culture? No; Amphetamines Screen Urine Positive (Negative); Barbiturates Screen Urine Negative (Negative); Benzodiazepines Screen Urine Negative (Negative); Cocaine Screen Urine Negative (Negative); Opiate Screen Urine Negative (Negative); PCP Screen Urine Negative (Negative); THC Screen Urine Positive (Negative)
[2023-12-23 14:50] LABS: Alanine Aminotransferase 11 U/L (0-33); Albumin Level 3.7 g/dL (3.5-5.2); Alkaline Phosphatase 75 U/L (35-105); Anion Gap 14.8 (5-19); Aspartate Amino Transferase 11 U/L (0-32); Blood Urea Nitrogen 12 mg/dL (6-20); Calcium 8.3 mg/dL (8.5-10.5); Carbon Dioxide 25 mmol/L (22-29); Chloride 106 mmol/L (98-107); Creatinine Clr Calc Pharmacy 124.1767; Glomerular Filtration Rate 126.7 mL/min (90-130); Glucose 104 mg/dL (65-115); Osmolality Calculated 294 mOsm/kg (285-295); Potassium 3.8 mmol/L (3.5-5.1); Sodium 142 mmol/L (136-145); Thyroid Stimulating Hormone 2.86 uIU/mL (0.27-4.20); Total Bilirubin 0.2 mg/dL (0.15-1.2); Total Protein 6.7 g/dL (6.6-8.7)
[2023-12-23 16:01] VITALS: BP 146/70; PULSE 89; RESP 18; O2SAT 94
== END 2023-12-23 16:02 | disposition home or self-care (01) ==
PROVIDERS: Emergency Provider Emergency Medicine; PCP Family Medicine
DX: F41.9 Anxiety disorder, unspecified (principal); F19.10 Other psychoactive substance abuse, uncomplicated; F17.210 Nicotine dependence, cigarettes, uncomplicated
CPT/HCPCS: 80053; 80306; 81001; 83735; 84443; 85025; 99283